=== PATIENT | male | born 1960 | race Caucasian/White ===

== ENCOUNTER 2017-05-24 11:20 | Emergency (ER) | payer BC ==
[~2017-05-24] VITALS: Ht 152.4 cm; Wt 119.0 kg
[~2017-05-24 11:20] MED LIST: IBUP-1277 PO; OLME1TAB11 PO
[2017-05-24 11:32] VITALS: Ht 152.4 cm; Wt 119.0 kg
[2017-05-24] MEDS ORDERED: MULT-506 PO (11:43)
[2017-05-24] MEDS ORDERED: AMOX875T PO (12:42)
[2017-05-24] MEDS ORDERED: CIPROFLOXACIN HCL 0.3% OP SOLN 2.5 ML BTL OP ONE (12:45)
--- NOTE | 2017-05-24 12:45 | EMERGENCY ROOM VISIT NOTE ---
ED Visit Note First contact with patient: 11:46 CHIEF COMPLAINT: Earache HISTORY OF PRESENT ILLNESS: This 57-year-old male patient presents to the emergency department, ambulatory, with his , and states they have had a right sided earache intermittently 2 weeks. The patient does have a history of an acoustic neuroma, however this has not been evaluated in 3 years. The patient states he became concerned when he began experiencing a right-sided earache and noticing some abnormal fluid which was tinged black in color coming from the ear canal for the past 24 hours. The patient states he has been using a Q-tip to try to clear out the ear canal, however he has only been noticing black drainage on the Q-tip. The patient states for 2 weeks, he has intermittently been feeling like there has been runny drainage coming out of his ear canal, and thought he may have cut his ear canal. The patient states he does frequently scratch at the canal, and does use foreign objects due to discomfort. The patient states daily, he does wake up congested, however he states he has not been ill recently. The patient denies fever, chills, congestion, sore throat, runny nose, or other associated symptoms. The patient states last night, he did feel a "popping" sensation in his right ear, and did place a cotton ball in the ear canal at that time. The patient states when he awoke, the cotton ball was saturated with a serous fluid which was tinged slightly with black. The pain is moderate, and is gradually increasing. They have noticed swelling and tenderness around the ear canal and pain below the ear on the upper neck. The pain is rated as minimal and 0/10. The patient has not been swimming recently. The patient has taken nothing relief of the pain or drainage. The patient has not contacted his ENT or neurology surgeon regarding his complaints at this time. REVIEW OF SYSTEMS: A 6 system review of systems was completed with positives and pertinent negatives listed in the HPI. ALLERGIES: None MEDICATIONS: Benicar, multivitamin PMH: Hypertension, acoustic neuroma SOCIAL HISTORY: The patient lives locally with family. He denies drug, alcohol , tobacco use. PHYSICAL EXAM: Vital Signs: Reviewed Nurse's notes, vital signs stable. GENERAL : This is a 57-year-old male, in no acute distress, non toxic in appearance, well developed, well nourished. SKIN: Normal. MOUTH: The pharynx is normal in appearance and the tonsils are not enlarged. The airway is patent. There are no exudates over the tonsils. EARS: The right external auditory canal is swollen and inflamed and there is positive tragal tenderness. The tympanic membrane on the right side is only partially visible, due to cerumen impaction with black cerumen towards the back of the canal. The TM does appear slightly erythematous and bulging. There is pus in the back of the canal. The left tympanic membrane is pearly ovalle without erythema or bulging and the external auditory canal is clear. HEART: Regular rate and rhythm without murmurs gallops or rubs. LUNGS: Clear to auscultation bilaterally without wheezes, rales or rhonchi. No dullness to percussion. No accessory muscle use. No retractions. ED COURSE: I examined the patient. The ear canal is open at this time, but there was a slight impaction towards the back of the canal. I did remove some of the cerumen with a cerumen spoon, however was unsuccessful at removing it all. There was slight bleeding with removal of the cerumen. Ciloxin suspension 4 drops were placed in the right ear. I encouraged the patient to follow up closely with his ENT surgeon and neurosurgeon in [place], or his ENT doctor locally for further evaluation and management. I did encourage him to follow up regarding his acoustic neuroma. The patient was discharged home in stable condition. DIFFERENTIAL DIAGNOSIS: Acute otitis externa, otitis media, acoustic neuroma complication, tinnitus, TM perforation, trauma or the ear canal, and others. DIAGNOSIS: Acute otitis externa, Acute otitis media DISCHARGE INSTRUCTIONS & TREATMENT: You have been treated in the Emergency Department for an Outer Ear Infection ( Otitis Externa). You were prescribed Augmentin to be taken twice daily. This is an antibiotic. Stop this medication and contact a medical provider if you were to develop any significant adverse side effects including: wheezing, shortness of breath, passing out, vomiting, or a diffuse rash. Always take antibiotics as directed and COMPLETE the ENTIRE course regardless of the improvement of your symptoms. You were also prescribed Ciloxan drops. Please use 4 drops twice daily in the affected ear. If you experience rash, increased irritation, worsening pain, or other concerning symptoms, discontinue the use of the drops and follow-up with your doctor. For pain and fever control, you can use the following [id number] medicines (if >12 yo): - Regular strength (325mg/tab) Tylenol (acetaminophen) 2 tabs every 4-6 hours as needed. Do not exceed 12 tablets in a 24 hour period. Avoid taking more than 4 grams (4000 mg) of Tylenol per day. This includes any other sources of acetaminophen you may take on a regular basis. - Regular strength (200 mg/tab) Advil (ibuprofen) 1-2 tabs every 4-6 hours as needed. Do not exceed a dose of 3200 mg per day. You should follow-up with your Primary Care Provider in one to 2 days from today 's Emergency Department visit. You should also follow up with your ear, nose, throat doctor for further evaluation of your symptoms and for checkup regarding your acoustic neuroma. Return to the emergency department if you develop the following symptoms despite treatment course outlined above: headache, fever, intractable pain, increased redness, swelling, or purulent discharge. Problem List Medical Problems: (1) Benign hypertension Status: Chronic Current/Historical Medications Scheduled Amoxicillin & Pot Clavulanate (Augmentin 875-125 mg), 1 TAB PO BID Multivitamin (Multivitamin), 1 TAB PO DAILY Olmesartan Medoxomil (Benicar), 20 MG PO DAILY Scheduled PRN Ibuprofen (Advil), 200-400 MG PO Q4H PRN Allergies Coded Allergies: No Known Allergies (Unverified , 05/24/17) Vital Signs Date Time Temp Pulse Resp B/P (MAP) Pulse Ox O2 Delivery O2 Flow Rate FiO2 05/24/17 13:12 59 16 137/75 96 05/24/17 11:32 36.7 59 16 137/75 96 Room Air Medications Administered Medications (Trade) Dose Ordered Sig/Hernandez Route Start Time Stop Time Status Last Admin Dose Admin Ciprofloxacin HCl (Ciprofloxacin 0.3% Op Soln) 4 drops NOW ONCE OT 05/24/17 13:15 05/24/17 13:16 DC 05/24/17 13:12 4 DROPS Departure Information Impression Primary Impression: Otitis externa Additional Impressions: Otitis media Benign hypertension Dispostion Home / Self-Care Condition GOOD Prescriptions Amoxicillin & Pot Clavulanate (Augmentin 875-125 mg) 1 Tab Tab 1 TAB PO BID for 7 Days, #14 TAB Prov: Eli De Jesus PA-C 05/24/17 Referrals Robson Arreola M.D. (PCP) José Steen M.D. Hirsch, Barry M.D. [facility]ARYNGOLOGY [facility] Patient Instructions ED Otitis Externa, ED Otitis Media Acute Adult, My [facility] Additional Instructions You have been treated in the Emergency Department for an Outer Ear Infection ( Otitis Externa). You were prescribed Augmentin to be taken twice daily. This is an antibiotic. Stop this medication and contact a medical provider if you were to develop any significant adverse side effects including: wheezing, shortness of breath, passing out, vomiting, or a diffuse rash. Always take antibiotics as directed and COMPLETE the ENTIRE course regardless of the improvement of your symptoms. You were also prescribed Ciloxan drops. Please use 4 drops twice daily in the affected ear. If you experience rash, increased irritation, worsening pain, or other concerning symptoms, discontinue the use of the drops and follow-up with your doctor. For pain and fever control, you can use the following [id number] medicines (if >12 yo): - Regular strength (325mg/tab) Tylenol (acetaminophen) 2 tabs every 4-6 hours as needed. Do not exceed 12 tablets in a 24 hour period. Avoid taking more than 4 grams (4000 mg) of Tylenol per day. This includes any other sources of acetaminophen you may take on a regular basis. - Regular strength (200 mg/tab) Advil (ibuprofen) 1-2 tabs every 4-6 hours as needed. Do not exceed a dose of 3200 mg per day. You should follow-up with your Primary Care Provider in one to 2 days from today 's Emergency Department visit. You should also follow up with your ear, nose, throat doctor for further evaluation of your symptoms and for checkup regarding your acoustic neuroma. Return to the emergency department if you develop the following symptoms despite treatment course outlined above: headache, fever, intractable pain, increased redness, swelling, or purulent discharge. Problem Qualifiers Primary Impression: Otitis externa Otitis externa type: unspecified type Chronicity: acute Laterality: right Qualified Codes: H60.501 - Unspecified acute noninfective otitis externa, right ear Additional Impressions: Otitis media Otitis media type: suppurative Chronicity: acute Laterality: right Recurrence: not specified as recurrent Spontaneous tympanic membrane rupture: without spontaneous rupture Qualified Codes: H66.001 - Acute suppurative otitis media without spontaneous rupture of ear drum, right ear
[2017-05-24 13:12] VITALS: BP 140/77; PULSE 62; O2SAT 96
[2017-05-24] MEDS ORDERED: CIPROFLOXACIN HCL 0.3% OP SOLN 2.5 ML BTL OT ONE (13:15)
== END 2017-05-24 13:14 | disposition home or self-care (01) ==
LOC: C.EDB 11:21 → C.EDC 13:14
DX: H60.91 Unspecified otitis externa, right ear (principal); H66.91 Otitis media, unspecified, right ear; I10 Essential (primary) hypertension; Z86.018 Personal history of other benign neoplasm